=== PATIENT | male | born 1995 | race Caucasian/White ===

== ENCOUNTER 2021-05-15 13:01 | Emergency (ER) | payer OTHER ==
[~2021-05-15] VITALS: Ht 182.9 cm; Wt 124.3 kg
[~2021-05-15 13:01] MED LIST: AZIT250 PO; IBUP400 PO; ONDA4ODT MM; RXCODACET PO; RXONDA4ODT MM; Roxicodone5 MG PO; Ultram50 MG PO
[2021-05-15] MEDS ORDERED: Acetaminophen500 MG PO (17:59)
[2021-05-15] MEDS ORDERED: NAPR500 PO (17:59)
== END 2021-05-15 18:53 | disposition home or self-care (01) ==
LOC: ER 13:01
DX: S06.0X0A Concussion without loss of consciousness, initial encounter (principal); S01.81XA Laceration without foreign body of other part of head, initial encounter; S01.21XA Laceration without foreign body of nose, initial encounter; R20.2 Paresthesia of skin; W22.8XXA Striking against or struck by other objects, initial encounter; Y99.0 Civilian activity done for income or pay; Z23 Encounter for immunization
CPT/HCPCS: 70450; 72125; 72141; 90714; J1170; J1885; J3010; L0160

== ENCOUNTER 2023-02-21 05:10 | Emergency (ER) | payer OTHER ==
[~2023-02-21] VITALS: Ht 182.9 cm; Wt 127.5 kg
[~2023-02-21 05:10] MED LIST changes: +Acetaminophen500 MG PO; +NAPR500 PO
[2023-02-21] MEDS ORDERED: HYDHCL25 PO (06:40)
[2023-02-21 06:55] VITALS: BP 135/92
== END 2023-02-21 06:55 | disposition home or self-care (01) ==
LOC: ER 05:10
DX: F32.A Depression, unspecified (principal)
CPT/HCPCS: 99283; A9270

== ENCOUNTER → 2024-05-21 | Outpatient (CLI) | payer OTHER ==
[~2024-05-21] MED LIST changes: +HYDHCL25 PO
[2024-05-23 14:32] LABS: APTIMA MEDIA TYPE Urine; C. TRACHOMATIS BY TMA Negative (Negative); N. GONORRHOEAE BY TMA Negative (Negative); SPECIMEN SOURCE Urine
== END | disposition home or self-care (01) ==
LOC: LAB SHORT 11:15 → LAB 11:15
PROVIDERS: Physician Assistant
DX: R39.89 Other symptoms and signs involving the genitourinary system (principal)
CPT/HCPCS: 87086; 87491; 87591